=== PATIENT | male | born 1965 | race Caucasian/White ===

== ENCOUNTER 2017-09-15 23:14 | Emergency (ER) | payer OTHER ==
[~2017-09-15] VITALS: Ht 170.2 cm; Wt 74.8 kg
[~2017-09-15 23:14] MED LIST: FLEXERIL PO; KEFLEX500 MG PO; NOHOMEMEDICATIONS; PERCOCET 5-3251 EACH PO
[2017-09-15] MEDS ORDERED: VIBRAMYCIN 100100 MG PO (23:34)
[2017-09-15 23:41] VITALS: BP 133/89
== END 2017-09-16 00:22 | disposition home or self-care (01) ==
LOC: ER 23:14
DX: S50.862A Insect bite (nonvenomous) of left forearm, initial encounter (principal); L08.9 Local infection of the skin and subcutaneous tissue, unspecified; F17.210 Nicotine dependence, cigarettes, uncomplicated; W57.XXXA Bitten or stung by nonvenomous insect and other nonvenomous arthropods, initial encounter; Y93.89 Activity, other specified; Y92.89 Other specified places as the place of occurrence of the external cause; Y99.8 Other external cause status